=== PATIENT | male | born 1955 | race Caucasian/White ===

== ENCOUNTER 2019-09-08 12:27 | Outpatient (RCR) | payer OTHER, SELFPAY | END 2019-10-06 00:01 | LOC: SPT 12:27 | PROVIDERS: Family Provider Nurse Practitioner; Visit Provider Specialist | DX: S42.202D Unspecified fracture of upper end of left humerus, subsequent encounter for fracture with routine healing (principal); X58.XXXD Exposure to other specified factors, subsequent encounter | CPT/HCPCS: 97110 ×7; 97161 ==

== ENCOUNTER 2019-10-07 06:00 | Outpatient (RCR) | payer OTHER, SELFPAY | END 2019-11-06 23:59 | disposition home or self-care (01) | LOC: SPT 06:00 | PROVIDERS: Family Provider Nurse Practitioner; PCP Nurse Practitioner; Visit Provider Specialist | DX: S42.202D Unspecified fracture of upper end of left humerus, subsequent encounter for fracture with routine healing (principal); X58.XXXD Exposure to other specified factors, subsequent encounter | CPT/HCPCS: 97110 ==

== ENCOUNTER → 2019-11-02 13:21 | Outpatient (BNVA) | payer OTHER, SELFPAY | PROVIDERS: Family Provider Nurse Practitioner; PCP Nurse Practitioner; Visit Provider Specialist | DX: S42.212A Unspecified displaced fracture of surgical neck of left humerus, initial encounter for closed fracture (principal); X58.XXXA Exposure to other specified factors, initial encounter | CPT/HCPCS: 73030 ==

== ENCOUNTER 2020-04-05 14:53 | Outpatient (CLI) | payer OTHER, SELFPAY ==
--- NOTE | 2020-04-05 14:58 | CT_ITS ---
WS: [id number] CT HEAD NONCONTRAST HISTORY: MEMORY LOSS TECHNIQUE: Contiguous axial imaging performed through the brain in 2.5 mm imaging. Bone and soft tiss ue windows. All CT scans at [facility] use at least one of these dose optimization techniq ues: automated exposure control; mA and/or kV adjustment per patient size (includes targeted exams wh ere dose is matched to clinical indication); or iterative reconstruction. DLP: 1058.18 mGycm COMPARISON: None available. No acute intracranial hemorrhage, midline shift or mass effect. Mild atrophy and mild chronic ischemic disease. Ventricles: Normal size with no hydrocephalus. Moderate atherosclerosis of intracranial carotid arteries. Heavy calcification in the distal RIGHT ve rtebral artery. Paranasal sinuses: As visualized are clear. Mastoid air cells: Well pneumatized. Calvarium and scalp: Skull is intact with no soft tissue edema or swelling. CT/CT head wo con* [id number] IMPRESSION: 1. No acute intracranial hemorrhage or edema. 2. Mild atrophy and mild small vessel chronic ischemic disease.
== END 2020-04-05 14:54 | disposition home or self-care (01) ==
LOC: RADWPI 14:58
PROVIDERS: Family Provider Nurse Practitioner; PCP Nurse Practitioner; Visit Provider Nurse Practitioner
DX: R41.3 Other amnesia (principal); G31.9 Degenerative disease of nervous system, unspecified; I67.82 Cerebral ischemia
CPT/HCPCS: 70450

== ENCOUNTER → 2020-05-18 13:52 | Outpatient (BNVA) | payer OTHER, SELFPAY | PROVIDERS: Family Provider Nurse Practitioner; PCP Nurse Practitioner; Visit Provider Urology | DX: N39.41 Urge incontinence (principal); N32.81 Overactive bladder | CPT/HCPCS: 81001 ==

== ENCOUNTER → 2020-08-16 13:50 | Outpatient (BNVA) | payer OTHER, SELFPAY | PROVIDERS: Family Provider Nurse Practitioner; PCP Nurse Practitioner; Visit Provider Urology | DX: N32.81 Overactive bladder (principal) | CPT/HCPCS: 81003 ==

== ENCOUNTER → 2020-08-24 13:43 | Outpatient (BNVA) | payer OTHER, SELFPAY | PROVIDERS: Family Provider Nurse Practitioner; PCP Nurse Practitioner; Referring Provider Nurse Practitioner; Visit Provider Specialist | DX: S42.292A Other displaced fracture of upper end of left humerus, initial encounter for closed fracture (principal); X58.XXXA Exposure to other specified factors, initial encounter; M16.11 Unilateral primary osteoarthritis, right hip | CPT/HCPCS: 73502 ==

== ENCOUNTER 2020-09-06 06:00 | Outpatient (RCR) | payer OTHER, SELFPAY | END 2020-10-06 23:59 | disposition home or self-care (01) | LOC: SPT 06:00 | PROVIDERS: PCP Nurse Practitioner; Referring Provider Specialist; Visit Provider Specialist | DX: M25.559 Pain in unspecified hip (principal) | CPT/HCPCS: 97110; 97112; 97161 ==

== ENCOUNTER 2020-10-07 06:00 | Outpatient (RCR) | payer OTHER, SELFPAY | END 2020-11-06 23:59 | disposition home or self-care (01) | LOC: SPT 06:00 | PROVIDERS: PCP Nurse Practitioner; Referring Provider Specialist; Visit Provider Specialist | DX: M25.559 Pain in unspecified hip (principal) | CPT/HCPCS: 97110; 97112 ==

== ENCOUNTER 2020-11-10 20:00 | Outpatient (CLI) | payer OTHER, SELFPAY | END 2020-11-10 20:01 | disposition home or self-care (01) | LOC: SLEEP 11-11 09:51 | PROVIDERS: PCP Nurse Practitioner; Visit Provider Nurse Practitioner | DX: R06.83 Snoring (principal); R53.83 Other fatigue; G47.33 Obstructive sleep apnea (adult) (pediatric) | CPT/HCPCS: 95811 ==

== ENCOUNTER 2021-03-08 10:39 | Outpatient (CLI) | payer OTHER, SELFPAY ==
--- NOTE | 2021-03-08 11:00 | USCV_ITS ---
Solitario Briseno Age: 65 Gender: M : 1955 Exam Date: 03/08/2021 11:12 Ordering Phys: Kelly Ordoñez Technologist: Lori Wilson Exam Location: [facility] [place] Indication: SCREENING HISTORY: Screening for AAA Diameter (cm) AP x Transverse x Length Velocity (cm/s) Waveform Prox Aorta: 2.15 x 2.04 x 72.00 Mid Aorta: 2.06 x 1.64 x 56.90 Distal Aorta: 2.69 x 2.53 x 3.62 51.20 Right Iliac Prox: 1.13 x 0.73 x 101.00 Left Iliac Prox: 1.35 x 1.22 x 76.80 Stent Prox Landing x x Aneurysmal Sac Max x x Lt Lat Sac Dim Rt Lat Sac Dim Stent Dist Landing x x Right Iliac Stent x x Left Iliac Stent x x Right Renal Art Left Renal Art FINDINGS: CONCLUSIONS No abdominal aortic aneurysm. Slightly ectatic distal aorta measures 2.6 x 2.5 x 3.6cm AP x Trans x CC Normal common iliac arteries Ronald Alfaro MD (Electronically Signed) Final Date: 08 March 2021 13:23 S
== END 2021-03-08 10:40 | disposition home or self-care (01) ==
LOC: RAD 10:45
PROVIDERS: PCP Nurse Practitioner; Visit Provider Emergency Medicine Emergency Medical Services
DX: Z13.6 Encounter for screening for cardiovascular disorders (principal)
CPT/HCPCS: 76706